=== PATIENT | male | born 1940 | race Caucasian/White ===

== ENCOUNTER → 2018-09-01 | Outpatient (CLI) | payer MEDICARE, SELFPAY ==
[2018-09-01 09:57] LABS: AST(SGOT) 22 U/L (15-37); Alanine Aminotransfer ALT/SGPT 23 U/L (16-61); Albumin, Serum 3.6 g/dL (3.2-5.0); Alkaline Phosphatase 60 U/L (45-117); Bilirubin, Direct 0.12 mg/dL (0.00-0.30); Cholesterol 184 mg/dL (200); Globulin 3.4 g/dL (2.2-4.2); High Density Lipoprotein 43 mg/dL; Triglycerides 112 mg/dL; Very Low Density Lipoprotein 22 mg/dL (5-40)
== END | disposition home or self-care (01) ==
LOC: LAB 08:24
PROVIDERS: Family Provider Family Medicine; PCP Family Medicine; Referring Provider Family Medicine; Visit Provider Family Medicine
DX: E78.5 Hyperlipidemia, unspecified (principal); Z51.81 Encounter for therapeutic drug level monitoring
CPT/HCPCS: 36415; 80061; 80076

== ENCOUNTER → 2021-01-27 17:15 | Outpatient (CLI) | payer MEDICARE, SELFPAY ==
[2021-01-27 17:48] LABS: Absolute Lymphocyte Count 1.93 X10^3/uL (0.83-4.51); Absolute Neutrophil Count 3.8 X10^3/uL (2.0-7.7); Basophil# 0.04 X10^3/uL; Basophil% 0.6 % (0-1); Eosinophil# 0.12 X10^3/uL; Eosinophils% 1.8 % (0-5); Hematocrit 42.7 % (40-54); Hemoglobin 14.3 g/dL (13.0-16.5); Lymphocyte # 1.93 X10^3/ul (0.83-4.51); Lymphocyte % 29.7 % (19-41); Mean Corp Hgb Conc 33.5 g/dL (32-36); Mean Corpuscular Volume 95.5 fL (80-94); Monocyte# 0.55 X10^3/uL; Monocyte% 8.5 % (0-10); NRBC Flagged by Analyzer 0 % (0-5); Neutrophil # 3.84 X10^3/uL (2.7-7.7); Neutrophil % 59.1 % (47-70); Platelet Count 205 K/mm3 (150-450); RBC Distribution Width CV 12.6 % (11.6-14.6); RBC Distribution Width SD 43.8 fl (35.1-43.9); Red Blood Count 4.47 M/mm3 (4.6-6.2); White Blood Count 6.5 K/mm3 (4.4-11.0)
[2021-01-27 18:11] LABS: Vitamin D,25 Hydroxy 41.4 ng/mL
[2021-01-27 18:18] LABS: AST(SGOT) 22 U/L (15-37); Alanine Aminotransfer ALT/SGPT 24 U/L (16-61); Albumin, Serum 3.6 g/dL (3.2-5.0); Alkaline Phosphatase 61 U/L (45-117); Anion Gap 3 (5-15); BUN 15 mg/dL (7-18); BUN/Creat Ratio 19.5 RATIO (10-20); Calcium,Total 9.1 mg/dL (8.5-10.1); Chloride 110 mmol/L (98-107); Creatinine, Serum 0.77 mg/dL (0.70-1.30); EST Glomerular Filtration Rate 103 mL/min (>60); Est Glom Filt Rate - Afr Amer 125 mL/min (>60); Globulin 3.6 g/dL (2.2-4.2); Glucose 82 mg/dL (74-106); Potassium 3.8 mmol/L (3.5-5.1); Protein, Total 7.2 g/dL (6.4-8.2); Sodium Level 142 mmol/L (136-145); Thyroid Stim Hormone (TSH) 0.79 uIU/mL (0.358-3.74)
== END ==
PROVIDERS: PCP Family Medicine Geriatric Medicine; Visit Provider Family Medicine Geriatric Medicine
DX: R53.83 Other fatigue (principal); E55.9 Vitamin D deficiency, unspecified
CPT/HCPCS: 36415; 80053; 82306; 84443; 85025

== ENCOUNTER 2021-02-25 07:38 | Outpatient (CLI) | payer MEDICARE, SELFPAY ==
--- NOTE | 2021-02-25 07:41 | CT_ITS ---
STUDY: CT CHEST WITHOUT CONTRAST- LOW DOSE SCREENING PROTOCOL REASON FOR EXAM: Male, 81 years old. Former smoker. Quit smoking less than 5 years ago. 50 pack per year history. No current symptoms of lung cancer or pulmonary infection. Shared decision-making with referring PCP documented in patient''s record. RADIATION DOSAGE (If Supplied By Facility): CTDIvol = ( ) mGy, DLP = ( ) mGycm TECHNIQUE: Low dose screening CT examination performed from the base of the neck to the upper abdomen. Sagittal and coronal reformatted images performed. Sagittal and coronal MIP images provided. The measurements provided are average, rounded measurements per ACR guidelines. COMPARISON: None. FINDINGS: Mild bilateral apical scarring. Mild emphysema. 4 mm noncalcified nodule in the anterior right upper lobe of the lungs on image 71 and follow-up CT is recommended in 12 months document stability. 8 mm flat soft tissue density in the anterior left lower lobe adjacent to the major fissure likely consistent with a subpleural scar. Follow-up CT is recommended in 6 months to document stability. There is no demonstrated pleural abnormality. Normal heart and pericardium. There are calcifications of the coronary arteries. Moderate sized hiatal hernia. Normal hilar regions. Normal unenhanced pulmonary arteries. There is atherosclerotic calcification of the aortic arch with tortuosity and elongation of the aortic arch and descending thoracic aorta. Normal osseous structures. Multiple hepatic cysts. CT/Low Dose CT Lung Screening IMPRESSION: 1. Bilateral peripheral nodules and follow-up CT is recommended in 6 months document stability.. 2. Incidental findings include mild emphysema and bilateral apical scarring. ASSESSMENT CATEGORY: LungRADS 3 - Probably Benign. Recommend follow up with LDCT in 6 months, per established ACR guidelines. Electronically Signed: Livan Vincent MD at 9:18 EST Tel , Service support ,
--- NOTE | 2021-02-25 07:41 | US_ITS ---
PROCEDURES: ULTRASOUND AORTA REASON FOR EXAM: Male, 81 years old. AAA WITHOUT RUPTURE TECHNIQUE: Ultrasound evaluation of the aorta was performed with real-time and static pitts-scale imaging. COMPARISON: None. FINDINGS: There is no elongation or tortuosity of the abdominal aorta. Aorta measures: Proximal 1.6 cm. Middle 1.4 cm. Distal 1.1 cm. Aorta measure transversely: Proximal 1.6 cm. Middle 2.1 cm. Distal 1.4 cm. Right iliac artery measures: 1.0 cm. Right iliac artery measure transversely: 1.2 cm. Left iliac artery measures: 1.0 cm. Left iliac artery measure transversely: 1.2 cm. There is no demonstrated aneurysm.. US/Aorta IMPRESSION: Normal abdominal aorta. Electronically Signed: Livan Vincent MD at 10:17 EST Tel , Service support ,
== END 2021-02-25 23:59 | disposition home or self-care (01) ==
PROVIDERS: PCP Family Medicine Geriatric Medicine; Referring Provider Family Medicine Geriatric Medicine; Visit Provider Family Medicine Geriatric Medicine
DX: I71.4 Abdominal aortic aneurysm, without rupture (principal); F17.210 Nicotine dependence, cigarettes, uncomplicated
CPT/HCPCS: 71271; 76775

== ENCOUNTER → 2022-02-09 | Outpatient (CLI) | payer MEDICARE, SELFPAY ==
--- NOTE | 2022-02-09 14:18 | CT_ITS ---
INDICATION: Fever and cough EXAMINATION: CT CHEST WITHOUT CONTRAST - CT Chest W/O Contrast Injection TECHNIQUE: Helically acquired images were obtained of the chest. A radiation dose optimization technique was used for this scan. IV Contrast dosage and agent: None. COMPARISON: 02/25/2021 FINDINGS: LUNGS, PLEURA AND LARGE AIRWAYS: Lung windows again show underlying emphysema with stable nonspecific pleural thickening in the apices. There is also stable nonspecific pleural thickening in both hemithoraces. There is no organized infiltrate. Stable 4 mm noncalcified nodule in the right upper lobe on axial image 40. Stable subpleural scar along the left major fissure on axial image 63. THYROID: No thyroid lesions. HEART AND PERICARDIUM: Heart size is normal. No pericardial effusion. CORONARY ARTERIES: Coronary artery calcification is seen. VESSELS: Thoracic aorta is not dilated. MEDIASTINUM AND YONATAN: No suspicious mediastinal or hilar adenopathy. Stable hiatal hernia with evidence of GE reflux. UPPER ABDOMEN: Limited cuts through the upper abdomen again show simple hepatic cysts. BONES: Bony structures show degenerative change. CT/Chest without Contrast IMPRESSION: Underlying emphysema with stable right upper lobe and left lower lobe subpleural nodule. Another six-month follow-up CT is recommended to assess stability. No new suspicious noncalcified mass or nodule. No organizing infiltrate or effusion. Calcified coronary vessels Stable hepatic cysts, no specific follow-up needed. Kera hiatal hernia with evidence of GE reflux Electronically Signed: Tyler Morales MD at 14:55 EST ,
== END | disposition home or self-care (01) ==
PROVIDERS: PCP Family Medicine Geriatric Medicine; Referring Provider Family Medicine Geriatric Medicine; Visit Provider Family Medicine Geriatric Medicine
DX: I25.10 Atherosclerotic heart disease of native coronary artery without angina pectoris (principal); K76.89 Other specified diseases of liver; R91.8 Other nonspecific abnormal finding of lung field; M19.90 Unspecified osteoarthritis, unspecified site; K44.9 Diaphragmatic hernia without obstruction or gangrene; K21.9 Gastro-esophageal reflux disease without esophagitis; J92.9 Pleural plaque without asbestos; R50.9 Fever, unspecified
CPT/HCPCS: 71250

== ENCOUNTER 2024-04-09 11:09 | Emergency (ER) | payer OTHER, SELFPAY ==
[2024-04-09 11:10] VITALS: BP 122/78; PULSE 77; RESP 18; TEMP 37.1; O2SAT 100; BMI 25.0
--- NOTE | 2024-04-09 12:00 | RAD_ITS ---
EXAM: XR Bilateral Hips With Pelvis When Performed, 2 or 3 Views CLINICAL INDICATION: TECHNIQUE: Three or four views of the bilateral hips with pelvis when performed. COMPARISON: No relevant prior studies available. FINDINGS: BONES/JOINTS: Moderate degenerative change of the hip joints, bilaterally. No acute fracture. No dislocation. SOFT TISSUES: Unremarkable. RAD/HIP, UNI W/ Pelvis 2-3 Views IMPRESSION: No acute findings in the bilateral hips. Reading Location: [facility]
--- NOTE | 2024-04-09 12:03 | ED.VIS.LOWEX ---
HPI History of Present Illness Chief Complaint: Lower Extremity Injury Informant: patient and family Narrative Narrative: 84-year-old male with persistent pain to the right groin and lateral hip hip area that started 2 weeks ago when he had an injury to this area. He states he was getting into his truck and there was ice, his right foot was up into the floorboard where his left foot was on the running board and slipped off, and the left foot went to the ground while his right leg remained up in the truck, in full extension at the knee. He did not fall or hurt anything directly, but he felt things stretching and felt like maybe they were tearing in his right groin and he has had pain ever since with difficulty walking. No numbness or tingling or weakness, no bowel or bladder dysfunction. Certain movements really hurt and others do not. No other injuries no back injury. [facility] Medical History Hyperlipidemia Arthritis Home Medications ?Medication ?Instructions ?Recorded ?Last Taken ?Type atorvastatin 20 mg tablet 20 mg PO DAILY 04/09/24 Unknown History cholecalciferol (vitamin D3) 50 50 mcg PO DAILY 04/09/24 Unknown History mcg (2,000 unit) capsule (Vitamin D3) hydrocodone-acetaminophen 5-325mg 1 tab PO Q6H PRN PRN Pain 3 days 04/09/24 Unknown Rx 5mg-325mg #10 TABLETS multivitamin (Daily Value tablet) 1 tab PO DAILY 04/09/24 Unknown History omeprazole 40 mg capsule,delayed 40 mg PO DAILY 04/09/24 Unknown History release Allergy/AdvReac Type Severity Reaction Status Date / Time No Known Allergies Allergy Verified 04/09/24 11:10 Surgical History H/O eye surgery Hx of appendectomy Social History Smoking Status: Former smoker ROS ROS ED Constitutional Constitutional ED: Denies chills or fever(s) Musculoskeletal Musculoskeletal: Reports extremity pain; Denies neck pain Integumentary Denies Abrasions, rash or wounds Neurologic Neurologic: Denies paresthesias or weakness EXAM Physical Exam Const Vital Signs: 04/09/24 11:10 Temperature 98.7 F Temperature Source Oral Pulse Rate 77 Respiratory Rate 18 Blood Pressure 122/78 H Blood Pressure Mean 92 Pulse Ox 100 Oxygen Delivery Method Room Air Positive well nourished and well developed General Appearance ED: well developed and NAD Neck full ROM and supple Back/Spine normal ROM and normal to inspection Extremity full ROM Extremity Narrative: Active external rotation about the right hip recreates pain. Passive internal rotation creates more groin/medial pain. He does have tenderness in multiple muscle and tendinous structures of the right thigh medial and anterior compartments. There is mild tenderness at the greater trochanter and the ASIS but not the AIIS. The ischial tuberosity is nontender. He is having some very mild tenderness in the external rotators posterior to the greater trochanter but not the gluteus medius/minimus. He can flex thigh against resistance without significant discomfort. All compartments are soft and nondistended of the thigh. There is no deformity or shortening of the leg. Neuro oriented x3, no focal motor deficits and no sensory deficits noted Sensorium / Orientation: alert Psych mental status grossly normal and thought process normal Skin no wounds Rashes: no rashes MDM MDM MDM Narrative Medical decision making narrative: I think this patient has a groin strain, but he has been taking ibuprofen without any relief in his symptoms are no better with conservative treatment over the past 2 weeks. Obtained three-view x-ray series of the right hip and pelvis on my interpretation it is negative for any pull offs or fractures. At this point I think referring him to orthopedics would be reasonable, if he continues to fail conservative treatment and he may need an MRI to determine if he has a tear. He declines crutches or a walker/cane states he has those things at home to use as needed, but he would take a prescription for analgesics to use at night for sleep. Radiography Diagnostic Testing: Clinical Impression(s) from Imaging Studies Hip/Pelvis X-Ray 04/09/24 12:00 IMPRESSION: No acute findings in the bilateral hips. Reading [facility] Discharge Plan Triage Chief Complaint: Lower Extremity Injury ED Provider: Jorge Hammer Dx/Rx/DC Orders Clinical Impression: Strain of right inguinal region Instructions: ED Groin Strain Prescriptions: New hydrocodone-acetaminophen 5-325 mg tablet 1 tab PO Q6H PRN PRN (Reason: Pain) 3 Days Qty: 10 0RF No Action atorvastatin 20 mg tablet 20 mg PO DAILY omeprazole 40 mg capsule,delayed release(DR/EC) 40 mg PO DAILY multivitamin [Daily Value] Tablet 1 tab PO DAILY cholecalciferol (vitamin D3) [Vitamin D3] 50 mcg (2,000 unit) capsule 50 mcg PO DAILY Primary Care Provider: [facility] Referrals: Ernesto Martinez DO [Med Staff - Active Staff] - As soon as possible Print Language: Montenegrin Disposition Disposition: Home, Self Care
== END 2024-04-09 13:16 | disposition home or self-care (01) ==
PROVIDERS: Emergency Provider Emergency Medicine; Visit Provider Emergency Medicine
DX: S76.811A Strain of other specified muscles, fascia and tendons at thigh level, right thigh, initial encounter (principal); Z87.891 Personal history of nicotine dependence; E78.5 Hyperlipidemia, unspecified; Z79.899 Other long term (current) drug therapy; Z90.49 Acquired absence of other specified parts of digestive tract; X58.XXXA Exposure to other specified factors, initial encounter; Y92.812 Truck as the place of occurrence of the external cause
CPT/HCPCS: 73502; 99282

== ENCOUNTER 2024-07-22 14:56 | Emergency (ER) | payer MEDICARE, SELFPAY ==
[2024-07-22 14:56] VITALS: BP 174/69; PULSE 64; RESP 14; TEMP 36.3; O2SAT 98; BMI 60.1
[2024-07-22 16:29] LABS: Bacteria 0 SEEN /hpf (None Seen); Mucous, Urine 0 SEEN /hpf (<or=2+); Red Blood Cells-Urine 0 SEEN /hpf (0-5); Squamous Epithelial Cells - UA 0 SEEN /hpf (0-5); White Blood Cells 0 SEEN /hpf (0-5)
[2024-07-22 16:32] LABS: Color, Urine Yellow (Yellow); Glucose, Dipstick Normal (Normal); Ketone-Dipstick Negative (Negative); Leukocyte Esterase-Dipstick Negative /ul (Negative); Nitrite-Dipstick Negative (Negative); Occult Blood-Urine Negative /ul (Negative); Protein-Dipstick 15 mg/dl (Negative); Urine Bilirubin Dipstick Negative (Negative); Urine Clarity Clear (Clear); Urine Urobilinogen Normal (Normal); Urine pH 6.5 (5.0 - 8.0)
[2024-07-22 16:50] VITALS: BP 141/83; PULSE 65; RESP 16; TEMP 37.2; O2SAT 98
[2024-07-22 17:15] VITALS: BP 141/83; PULSE 65
[2024-07-22 17:18] VITALS: BMI 27.3
[2024-07-22 17:36] LABS: Anion Gap 11 (5-15); BUN 15 mg/dL (4-19); BUN/Creat Ratio 20.1 RATIO (10-20); Carbon Dioxide 24.5 mmol/L (21.0-32.0); Chloride 104 mmol/L (98-108); Creatinine, Serum 0.74 mg/dL (0.70-1.20); EST Glomerular Filtration Rate 90 (>60); Estimated Creatinine Clearance 67.69 ml/min (50-250); Glucose 94 mg/dL (70-99); Potassium 3.7 mmol/L (3.3-5.1); Sodium Level 139 mmol/L (133-145)
--- NOTE | 2024-07-22 18:03 | EX.ED.GUMALE ---
HPI History of Present Illness Chief Complaint: Complaint Informant: patient Narrative Narrative: Patient is an 84 year old male who is postop day 5 from right hip surgery. Is done at [place] with Dr. Solares. He notes overall he has been doing really well postoperatively however he has had a hard time emptying his bladder. Starting Tuesday night he has had worsening nighttime frequency and urgency. He states at night he will only dribble a little bit. For the past 3 nights he has not been able sleeping because he is up going to the bathroom all the time. He is having lower abdominal discomfort. Denies any hematuria. Denies any fever or chills. States he is otherwise doing very well. No other complaints or concerns reported this time. [facility] Medical History Hyperlipidemia Arthritis Home Medications ?Medication ?Instructions ?Recorded ?Last Taken ?Type atorvastatin 20 mg tablet 20 mg PO DAILY 04/09/24 Unknown History cholecalciferol (vitamin D3) 50 50 mcg PO DAILY 04/09/24 Unknown History mcg (2,000 unit) capsule (Vitamin D3) hydrocodone-acetaminophen 5-325mg 1 tab PO Q6H PRN PRN Pain 3 days 04/09/24 Unknown Rx 5mg-325mg #10 TABLETS multivitamin (Daily Value tablet) 1 tab PO DAILY 04/09/24 Unknown History omeprazole 40 mg capsule,delayed 40 mg PO DAILY 04/09/24 Unknown History release Allergy/AdvReac Type Severity Reaction Status Date / Time No Known Allergies Allergy Verified 07/22/24 14:57 Surgical History H/O eye surgery Hx of appendectomy Social History Smoking Status: Former smoker ROS ROS ED Constitutional Constitutional ED: Denies chills or fever(s) Gastrointestinal Gastrointestinal: Denies abdominal pain Genitourinary Genitourinary ED: Reports urinary frequency and other Details: Incomplete bladder emptying, frequent nocturnal urination. ; Denies dysuria or hematuria Musculoskeletal Musculoskeletal: Denies back pain Integumentary Denies rash Neurologic Neurologic: Denies paresthesias or weakness Psychiatric Psychiatric: Denies anxiety Hematologic/Lymphatic Hematologic/Lymphatic: Denies easy bleeding or easy bruising EXAM Physical Exam Const Vital Signs: 07/22/24 14:56 07/22/24 16:50 07/22/24 17:15 Temperature 97.3 F L 98.9 F Temperature Source Temporal Temporal Pulse Rate 64 65 65 Respiratory Rate 14 16 Blood Pressure 174/69 H 141/83 H 141/83 H Blood Pressure Mean 104 102 102 Pulse Ox 98 98 Oxygen Delivery Method Room Air Positive well nourished and well developed General Appearance ED: well developed and NAD HEENT Reports moist mucous membranes Resp normal respiratory effort and clear to auscultation bilaterally Cardio regular rate and regular rhythm GI non-distended GI Narrative: Mild suprapubic distention and discomfort with palpation. Patient tells me he has to go urinate. Auscultation: normoactive bowel sounds Palpation: soft Extremity Extremity Narrative: Ambulatory with walker quite easily in the emergency room. Neuro oriented x3 Sensorium / Orientation: alert Psych mental status grossly normal Skin Skin Narrative: Postoperative incision of the right hip/right anterior thigh. Nontender. Steri-Strips in place. Small amount of dried blood present. No surrounding erythema. MDM MDM MDM Narrative Medical decision making narrative: Patient evaluated for difficulty urinating. Sounds that he is having postoperative urinary retention. He is able to urinate in the ER but bladder scan postvoid still has presently 500 cc of urine. He is overall quite well-appearing. Postoperative from his hip he is doing great. Shipley catheter placed and patient has over 700 cc of urine out. He is feeling much better. Given this for going on for couple days will obtain a BMP to check for renal function. This is normal. Patient counseled on Shipley catheter care and to follow-up with urology. Is given referral for Dr. Campbell as he does not have a urologist. Counseled the shipley will need to stay in for 5 to 7 days. Patient and family verbalized agreement understands plan. Patient discharged home in stable improved condition. Lab Data Attestation: I reviewed the patient's lab results. Labs: Laboratory Results - last 24 hr 07/22/24 07/22/24 16:15 17:10 Sodium 139 Potassium 3.7 Chloride 104 Carbon Dioxide 24.5 Anion Gap 11 BUN 15 Creatinine 0.74 Estim Creat Clear Calc 67.69 Est GFR (MDRD) Non-Af 90 BUN/Creatinine Ratio 20.1 H Glucose 94 Calcium 9.0 Urine Color Yellow Urine Clarity Clear Urine pH 6.5 Ur Specific Wall 1.010 Urine Protein 15 H Urine Glucose (UA) Normal Urine Ketones Negative Urine Occult Blood Negative Urine Nitrite Negative Urine Bilirubin Negative Urine Urobilinogen Normal Ur Leukocyte Esterase Negative Urine RBC 0 SEEN Urine WBC 0 SEEN Ur Squamous Epith Cells 0 SEEN Urine Bacteria 0 SEEN Urine Mucus 0 SEEN Discharge Plan Triage Chief Complaint: Complaint ED Provider: Mya Méndez Dx/Rx/DC Orders Clinical Impression: Postoperative urinary retention Instructions: ED Shipley Catheter, Care, ED Urinary Retention, Male Prescriptions: No Action atorvastatin 20 mg tablet 20 mg PO DAILY omeprazole 40 mg capsule,delayed release(DR/EC) 40 mg PO DAILY multivitamin [Daily Value] Tablet 1 tab PO DAILY cholecalciferol (vitamin D3) [Vitamin D3] 50 mcg (2,000 unit) capsule 50 mcg PO DAILY hydrocodone-acetaminophen 5-325 mg tablet 1 tab PO Q6H PRN PRN (Reason: Pain) 3 Days Qty: 10 0RF [facility] Care Provider: [facility] Referrals: Domo Campbell MD [Med Staff - Active Staff] - [facility] [Primary Care Provider] - Activity Restrictions/Additional Instructions: Please call urology office on Tuesday to arrange follow-up within the next 5 to 7 days for Shipley catheter check and potential removal. Return if your Shipley is not draining or if you have further concerns. Print Language: Comoran Disposition Disposition: Home, Self Care
[2024-07-22 18:15] VITALS: BP 138/74; PULSE 69; RESP 17; TEMP 37.1; O2SAT 100
== END 2024-07-22 18:16 | disposition home or self-care (01) ==
PROVIDERS: Emergency Provider Emergency Medicine; Visit Provider Emergency Medicine
DX: R33.8 Other retention of urine (principal); E78.5 Hyperlipidemia, unspecified; Z87.891 Personal history of nicotine dependence; Z98.890 Other specified postprocedural states; Z79.899 Other long term (current) drug therapy; Z90.49 Acquired absence of other specified parts of digestive tract
CPT/HCPCS: 51702; 80048; 81001; 99283